=== PATIENT | male | born 1960 | race American Indian/Alaskan Native ===

== ENCOUNTER 2016-09-13 07:14 | Emergency (ER) | payer BC ==
[2016-09-13 07:29] VITALS: BP 150/89; PULSE 84; RESP 16; TEMP 98.3; O2SAT 100
--- NOTE | 2016-09-13 07:56 | C.PDOC ---
History Of Present Illness Patient is a 56 y/o male that presents to the ED for evaluation of right eye redness and burning sensation since yesterday. Notes wearing new set of contact lenses yesterday. Patient states that he noticed purulent discharge this morning with some light sensitivity. Patient also complains of productive cough , nasal discharge, and sinus pressure. Pt reports taking Sudafed with relief. Otherwise, denies any visual changes, swelling, fever, headache, neck pain, shortness of breath, chest pain, or any other associated symptoms at this time. Time Seen by Provider: 09/13/16 07:25 Chief Complaint (Nursing): Eye Problem History Per: Patient History/Exam Limitations: no limitations Onset/Duration Of Symptoms: Days (1) Current Symptoms Are (Timing): Still Present Injury To Eye?: No Quality: Burning Wears Contact Lens?: Yes Associated Symptoms: Discharge From Eye, Other (redness). denies: Decreased Vision, Swelling, FB Sensation, Itching Recent travel outside of the [place]: No Additional History Per: Patient Past Medical History Reviewed: Historical Data, Nursing Documentation, Vital Signs Vital Signs: Last Vital Signs Temp 98.3 F 09/13/16 07:24 Pulse 84 09/13/16 07:24 Resp 16 09/13/16 07:24 BP 150/89 09/13/16 07:24 Pulse Ox 100 09/13/16 10:44 - Medical History PMH: Diabetes, Kidney Stones Other PMH: microscopic blood in urine Family History: States: Unknown Family Hx - Social History Hx Tobacco Use: Yes Hx Alcohol Use: Yes Hx Substance Use: No - Immunization History Hx Tetanus Toxoid Vaccination: No Hx Influenza Vaccination: No Hx Pneumococcal Vaccination: No Review Of Systems Except As Marked, All Systems Reviewed And Found Negative. Constitutional: Negative for: Fever, Chills Eyes: Positive for: Pain (right), Redness (right), Other (photophobia). Negative for: Vision Change, Conjunctivae Inflammation, Eyelid Inflammation ENT: Positive for: Nose Discharge, Nose Congestion. Negative for: Ear Pain, Throat Pain Cardiovascular: Negative for: Chest Pain, Palpitations Respiratory: Positive for: Cough. Negative for: Shortness of Breath Musculoskeletal: Negative for: Neck Pain Skin: Negative for: Rash Neurological: Negative for: Headache, Dizziness Physical Exam - Physical Exam Appears: Non-toxic, No Acute Distress Skin: Normal Color, Warm, Dry Head: Atraumatic, Normacephalic, Tenderness ((+) right malar tenderness) Eye(s): bilateral: PERRL, EOMI, Other (arcus senilis bilaterlly; injected right eye with purulent discharge) Ear(s): Bilateral: Normal Nose: Normal Oral Mucosa: Moist Throat: Normal, No Erythema, No Exudate Neck: Normal ROM, Supple Lymphatic: Normal Exam Chest: Symmetrical Cardiovascular: Rhythm Regular Respiratory: Normal Breath Sounds Extremity: Normal ROM Neurological/Psych: Oriented x3, Normal Speech ED Course And Treatment O2 Sat by Pulse Oximetry: 100 (on RA) Pulse Ox Interpretation: Normal Progress Note: Patient is being discharged home with instructions to follow up with eye doctor and PMD in 1-2 days. Pt was instructed not to wear his contact lens. Disposition - Disposition Referrals: Dilshad Hamilton MD [Staff Provider] - Disposition: HOME/ ROUTINE Disposition Time: 07:53 Condition: STABLE Additional Instructions: Do not where your contacts. Follow up with eye doctor and your primary doctor in 1-2 days. Return to ER if symptoms persist or worsen including but not limited to fever, visual changes, vomiting, neck pain or headache. 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 - Scribe Statement The provider has reviewed the documentation as recorded by the Ana M Chandler All medical record entries made by the Ana M were at my direction and personally dictated by me. I have reviewed the chart and agree that the record accurately reflects my personal performance of the history, physical exam, medical decision making, and the department course for this patient. I have also personally directed, reviewed, and agree with the discharge instructions and disposition.
== END 2016-09-13 08:09 | disposition home or self-care (01) ==
LOC: C.ER 07:14
DX: H10.9 Unspecified conjunctivitis (principal); J32.9 Chronic sinusitis, unspecified; Z72.0 Tobacco use

== ENCOUNTER 2017-07-08 15:58 | Emergency (ER) | payer OTHER, BC ==
[2017-07-08 16:24] VITALS: BP 158/91; PULSE 84; RESP 17; TEMP 98.2; O2SAT 98
--- NOTE | 2017-07-08 17:32 | RAD ---
PROCEDURE: Cervical Spine Radiographs. HISTORY: Pain. COMPARISON: None. FINDINGS: BONES: There is straightening of the cervical spine with loss of normal cervical lordosis. There is mild degenerative retrolisthesis of C3 on C4 and C5 on C6. Bone mineralization is normal. There is no acute fracture. The craniocervical junction is normal. The atlantoaxial joint is normal. DISC SPACES: There is multilevel degenerative disc disease with anterior osteophytes, reduced disc heights and multilevel facet arthropathy, worse at C5-6. SOFT TISSUES: Normal. No prevertebral soft tissue swelling. OTHER FINDINGS: None. IMPRESSION: Multilevel degenerative disc disease, worse at C5-6. Straightening of the cervical spine may be positional or related to muscle spasm.
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
== END 2017-07-08 18:13 | disposition home or self-care (01) ==
LOC: C.ER 15:58
DX: S16.1XXA Strain of muscle, fascia and tendon at neck level, initial encounter (principal); V49.40XA Driver injured in collision with unspecified motor vehicles in traffic accident, initial encounter